=== PATIENT | female | born 1955 | race American Indian/Alaskan Native ===

== ENCOUNTER 2022-06-05 13:07 | Outpatient (CLI) | payer MEDICAID ==
[2022-06-05] MEDS ORDERED: LIDOCAINE (4%) 40 MG/ML TOPICAL SOLN 50 ML BOTTLE TP ONE (13:55)
== END 2022-06-05 13:08 | disposition home or self-care (01) ==
LOC: WOUND 13:07
PROVIDERS: ATTEND Surgery
DX: I87.311 Chronic venous hypertension (idiopathic) with ulcer of right lower extremity (principal); L97.812 Non-pressure chronic ulcer of other part of right lower leg with fat layer exposed; I10 Essential (primary) hypertension; E78.5 Hyperlipidemia, unspecified; Z79.899 Other long term (current) drug therapy
CPT/HCPCS: 11042; 11045; G0463; 99204

== ENCOUNTER 2022-06-13 09:43 | Outpatient (CLI) | payer MEDICAID ==
--- NOTE | 2022-06-13 13:41 | Vascular Lab Report ---
DUPLEX DOPPLER LOWER EXTREMITY VEINS, RIGHT INDICATION / CLINICAL INFORMATION: I87.311 CHRONIC VENOUS HYPERTENION. TECHNIQUE: Duplex doppler imaging was performed through the veins of the right lower extremity using venous compression and other maneuvers. COMPARISON: None available. FINDINGS: RIGHT COMMON FEMORAL VEIN: Negative. RIGHT FEMORAL VEIN: Negative. RIGHT POPLITEAL VEIN: Negative. RIGHT CALF VEINS: Negative. ADDITIONAL FINDINGS: None. IMPRESSION: 1. No sonographic evidence for DVT in the right lower extremity. 2. Mild venous insufficiency noted in the right external iliac vein. Scribed by: Gabriella Watkins RDMS, ROMA, CARLOS Scribed: 06/13/2022 12:11 PM I have reviewed the images, agree with this report, and edited this report as needed. Signer Name: Eladio Cardona MD Signed: 06/13/2022 1:36 PM Workstation Name: [id number]
--- NOTE | 2022-06-13 14:42 | Vascular Lab Report ---
DUPLEX DOPPLER LOWER EXTREMITY ARTERIAL, RIGHT INDICATION / CLINICAL INFORMATION: RLE ULCER, CHRONIC VENOUS HTN. TECHNIQUE: Arterial duplex examination of the right lower extremity performed using B-mode, color althea w and spectral Doppler assessment. FINDINGS: RIGHT: Common Femoral Artery: PSV 174 cm/sec. Triphasic waveform. Proximal SFA: PSV 176 cm/sec. Triphasic waveform. Mid SFA: PSV 163 cm/sec. Triphasic waveform. Distal SFA: PSV 169 cm/sec. Triphasic waveform. Popliteal Artery: PSV 157 cm/sec. Triphasic waveform. Posterior tibial artery: PSV 97 cm/sec. Biphasic waveform. Dorsalis Pedis Artery: PSV 117 cm/sec. Biphasic waveform. ADDITIONAL FINDINGS: None. RIGHT JENNIFER: Not calculated. IMPRESSION: 1. There is transition to biphasic waveforms in the posterior tibial and dorsalis pedis arteries sugg esting crural artery disease. Ankle-Brachial Index (JENNIFER): - Calcified arteries > 1.4 - Normal = 0.9-1.4 - Mild PAD = 0.7-0.89 - Moderate PAD = 0.51-0.69 - Severe PAD < 0.5 Doppler Waveform: - Triphasic is normal. - Biphasic is abnormal if clear transition from triphasic signal along vascular tree. - Monophasic is abnormal. Scribed by: Gabriella Watkins RDMS, RVT, CARLOS Scribed: 06/13/2022 12:17 PM I have reviewed the images, agree with this report, and edited this report as needed. Signer Name: Bogdan Wilde MD Signed: 06/13/2022 2:37 PM Workstation Name: [employer]
== END 2022-06-13 09:44 | disposition home or self-care (01) ==
LOC: VAS 09:43
PROVIDERS: ATTEND Surgery
DX: I82.421 Acute embolism and thrombosis of right iliac vein (principal); I87.311 Chronic venous hypertension (idiopathic) with ulcer of right lower extremity

== ENCOUNTER 2022-07-17 09:59 | Outpatient (CLI) | payer MEDICAID ==
[2022-07-17] MEDS ORDERED: LIDOCAINE (4%) 40 MG/ML TOPICAL SOLN 50 ML BOTTLE TP ONE (10:02)
== END 2022-07-17 10:00 | disposition home or self-care (01) ==
LOC: WOUND 09:59
PROVIDERS: ATTEND Surgery
DX: I87.311 Chronic venous hypertension (idiopathic) with ulcer of right lower extremity (principal); L97.812 Non-pressure chronic ulcer of other part of right lower leg with fat layer exposed; E78.5 Hyperlipidemia, unspecified; Z79.899 Other long term (current) drug therapy